=== PATIENT | female | born 1980 | race Caucasian/White ===

== ENCOUNTER 2017-02-24 07:21 | Emergency (ER) | payer MEDICAID ==
[~2017-02-24] VITALS: Ht 172.7 cm; Wt 82.0 kg
[~2017-02-24 07:21] MED LIST: DULOXETINE; GABA300C10; Imitrex; Klonopin; OMEP-110 PO; OXYC-229; PRED20TA PO; PREG75CA PO; Propranolol; QUET50TA5 PO; QUET50TA8 PO; SIMV20TA3 PO
[2017-02-24 07:22] VITALS: BP 131/85
== END 2017-02-24 07:42 ==
LOC: ED 07:36
DX: Z53.21 Procedure and treatment not carried out due to patient leaving prior to being seen by health care provider (principal)

== ENCOUNTER → 2018-11-18 | Outpatient (CLI) | payer OTHER ==
[~2018-11-18] MED LIST changes: -OXYC-229; +OXYC-307; -QUET50TA8 PO; +QUET50TA9 PO
== END | disposition home or self-care (01) ==
LOC: CFH 06:57
PROVIDERS: ATTEND Physician Assistant Surgical
DX: M94.262 Chondromalacia, left knee (principal); M25.462 Effusion, left knee